=== PATIENT | male | born 1975 | race Asian ===

== ENCOUNTER 2024-06-01 12:16 | Emergency (ER) | payer BC ==
[~2024-06-01] VITALS: Ht 170.2 cm; Wt 56.7 kg
[2024-06-01] MEDS ORDERED: IBUP-1955 PO (13:18)
[2024-06-01] MEDS ORDERED: KETOROLAC TROMETHAMINE INJ 30 MG/ML VIAL ONE (13:29)
[2024-06-01] MEDS ORDERED: KETOROLAC TROMETHAMINE 15 MG/ML VIAL ONE (13:30)
[2024-06-01] MEDS: KETOROLAC TROMETHAMINE 15 MG/ML VIAL IM ONE (13:35)
[2024-06-01 13:52] VITALS: BP 112/70; TEMP 98.1; O2SAT 100
== END 2024-06-01 13:53 | disposition home or self-care (01) ==
LOC: ER 12:27
DX: B34.9 Viral infection, unspecified (principal); M79.10 Myalgia, unspecified site; R50.9 Fever, unspecified; Z20.822 Contact with and (suspected) exposure to COVID-19
CPT/HCPCS: 99283; 87426; 96372; 87804 ×2; J1885